=== PATIENT | female | born 1940 | race Caucasian/White ===

== ENCOUNTER 2016-11-04 15:25 | Emergency (ER) | payer OTHER ==
[~2016-11-04] VITALS: Ht 152.4 cm; Wt 72.0 kg
[2016-11-04 15:25] VITALS: BP 142/67; PULSE 71; RESP 16; TEMP 98.2; O2SAT 100
[2016-11-04 15:46] LABS: AUTOMATED NEUTROPHIL # 4.6 TH/MM3 (1.8-7.7); BASOPHIL # 0.1 TH/MM3 (0-0.2); BASOPHIL % 0.8 % (0.0-2.0); EOSINOPHIL # 0.2 TH/MM3 (0-0.4); EOSINOPHIL % 2.2 % (0.0-4.0); HEMO FLAGS DIFF FINAL; LYMPH % 20.5 % (9.0-44.0); LYMPHOCYTE # 1.4 TH/MM3 (1.0-4.8); MEAN CELL VOLUME 90.3 FL (80.0-100.0); MEAN CORPUSCULAR HGB CONC 34.3 % (32.0-36.0); MONO % 6.8 % (0.0-8.0); NEUT % 69.7 % (16.0-70.0); PLATELET COUNT 168 TH/MM3 (150-450); RED BLOOD COUNT 4.54 MIL/MM3 (4.00-5.30); RED CELL DISTRIBUTION WIDTH 12.4 % (11.6-17.2); WHITE BLOOD COUNT 6.8 TH/MM3 (4.0-11.0)
[2016-11-04 15:54] LABS: CHLORIDE 111 MEQ/L (98-107); POTASSIUM 4.1 MEQ/L (3.5-5.1); SODIUM (NA) 143 MEQ/L (136-145)
[2016-11-04 15:56] LABS: ANION GAP 6 MEQ/L (5-15); BICARBONATE 26.3 MEQ/L (21.0-32.0)
[2016-11-04 15:57] LABS: BLOOD UREA NITROGEN 27 MG/DL (7-18)
[2016-11-04 16:00] VITALS: O2SAT 98
[2016-11-04 16:00] LABS: APTT (PATIENT) 26.8 SEC (24.3-30.1); GLOMERULAR FILTRATION RATE 71 ML/MIN (>89); PROTHROMBIN TIME - PATIENT 11.1 SEC (9.8-11.6)
[2016-11-04 16:03] LABS: CREATINE KINASE 108 U/L (26-192)
--- NOTE | 2016-11-04 16:12 | PD ---
HPI Chief Complaint: Chest Pain Time Seen by Provider: 16:01 Travel History International Travel<30 days: No Contact w/Intl Traveler<30days: No Traveled to known affect area: No History of Present Illness HPI Patient is a 76 her old female with history of TIA, hyperlipidemia, hypothyroidism, presents to emergency room with complaints of chest pain. Patient reports that since this morning, she has felt a pressure and wrapping sensation around her lower chest wall. Patient reports that she initially thought that her symptoms were due to indigestion as symptoms began after breakfast (bagel and orange juice), reports that she took some Rolaids with no relief of symptoms. Patient reports that her symptoms progressed throughout the day she became concerned. Patient denies history of coronary disease, denies history of OR. Patient denies any shortness of breath or diaphoresis with her symptoms. She does not see a in service educator. PFSH Past Medical History Arthritis: Yes High Cholesterol: Yes Thyroid Disease: Yes ?: Not Past Surgical History Section: Yes Tonsillectomy: Yes Social History Alcohol Use: No Tobacco Use: No Substance Use: No Allergies-Medications (Allergen,Severity, Reaction): Coded Allergies: No Known Allergies (Unverified , 11/04/16) Reported Meds & Prescriptions Reported Meds & Active Scripts Active Protonix (Pantoprazole Sodium) 40 Mg Tab 40 Mg PO DAILY Reported Calcium 600 with Vitamin D (Calcium Carbonate-Cholecalciferol) 600-400 mg-Unit Tab 1 Tab PO DAILY Glucosamine-Chondroitin 500-400 Mg Tab 1 Tab PO DAILY Aspirin 81 Mg Chew 81 Mg CHEW DAILY [place]-3 Fish Oil/Vitamin (Fish Oil-Cholecalciferol) 1,000-1,000 Mg Cap 1 Cap PO DAILY Levothyroxine (Levothyroxine Sodium) 88 Mcg Tab 88 Mcg PO DAILY Naproxen Sodium DS (Naproxen Sodium) 550 Mg Tab 550 Mg PO BID Simvastatin 10 Mg Tab 10 Mg PO DAILY Review of Systems General / Constitutional: No: Fever Eyes: No: Visual changes HENT: No: Headaches Cardiovascular: Positive: Chest Pain or Discomfort Respiratory: No: Shortness of Breath Gastrointestinal: No: Abdominal Pain Genitourinary: No: Dysuria Musculoskeletal: No: Pain Skin: No Rash Neurologic: No: Weakness Psychiatric: No: Depression Endocrine: No: Polydipsia Hematologic/Lymphatic: No: Easy Bruising Physical Exam Narrative GENERAL: No acute distress, nontoxic SKIN: Focused skin assessment warm/dry. HEAD: Atraumatic. Normocephalic. EYES: Pupils equal and round. No scleral icterus. No injection or drainage. ENT: No nasal bleeding or discharge. Mucous membranes pink and moist. NECK: Trachea midline. No JVD. CARDIOVASCULAR: Regular rate and rhythm. No murmur appreciated. RESPIRATORY: No accessory muscle use. Clear to auscultation. Breath sounds equal bilaterally. GASTROINTESTINAL: Abdomen soft, non-tender, nondistended. Hepatic and splenic margins not palpable. MUSCULOSKELETAL: No obvious deformities. No clubbing. No cyanosis. No edema. NEUROLOGICAL: Awake and alert. No obvious cranial nerve deficits. Motor grossly within normal limits. Normal speech. PSYCHIATRIC: Appropriate mood and affect; insight and judgment normal. Data Data Last Documented VS Vital Signs Date Time Temp Pulse Resp B/P Pulse Ox O2 Delivery O2 Flow Rate FiO2 11/04/16 19:04 98.2 59 18 153/73 100 11/04/16 18:34 Room Air Orders Electrocardiogram (11/04/16 15:30) Complete Blood Count With Diff (11/04/16 15:30) Basic Metabolic Panel (Bmp) (11/04/16 15:30) Ckmb (Isoenzyme) Profile (11/04/16 15:30) Troponin I (11/04/16 15:30) Chest, Single Ap (11/04/16 15:30) Iv Access Insert/Monitor (11/04/16 15:30) Ecg Monitoring (11/04/16 15:30) Oxygen Administration (11/04/16 15:30) Oximetry (11/04/16 15:30) Act Partial Throm Time (Ptt) (11/04/16 15:36) Prothrombin Time / Inr (Pt) (11/04/16 15:36) CKMB (11/04/16 15:30) CKMB% (11/04/16 15:30) Aspirin Chew (Aspirin Chew) (11/04/16 16:15) Nitroglycerin Sl (Nitrostat Sl) (11/04/16 16:15) Famotidine Inj (Pepcid Inj) (11/04/16 16:45) Al-Mag Hy-Si 40-40-4 Mg/Ml Liq (Mag-Al P (11/04/16 16:45) Lidocaine 2% Viscous (Xylocaine 2% Visco (11/04/16 16:45) Troponin I (11/04/16 18:30) Electrocardiogram (11/04/16 18:21) Labs Laboratory Tests Test 11/04/16 11/04/16 15:30 18:10 White Blood Count 6.8 TH/MM3 Red Blood Count 4.54 MIL/MM3 Hemoglobin 14.1 GM/DL Hematocrit 41.0 % Mean Corpuscular Volume 90.3 FL Mean Corpuscular Hemoglobin 31.0 PG Mean Corpuscular Hemoglobin 34.3 % Concent Red Cell Distribution Width 12.4 % Platelet Count 168 TH/MM3 Mean Platelet Volume 8.4 FL Neutrophils (%) (Auto) 69.7 % Lymphocytes (%) (Auto) 20.5 % Monocytes (%) (Auto) 6.8 % Eosinophils (%) (Auto) 2.2 % Basophils (%) (Auto) 0.8 % Neutrophils # (Auto) 4.6 TH/MM3 Lymphocytes # (Auto) 1.4 TH/MM3 Monocytes # (Auto) 0.5 TH/MM3 Eosinophils # (Auto) 0.2 TH/MM3 Basophils # (Auto) 0.1 TH/MM3 CBC Comment DIFF FINAL Differential Comment Prothrombin Time 11.1 SEC Prothromb Time International 1.0 RATIO Ratio Activated Partial 26.8 SEC Thromboplast Time Sodium Level 143 MEQ/L Potassium Level 4.1 MEQ/L Chloride Level 111 MEQ/L Carbon Dioxide Level 26.3 MEQ/L Anion Gap 6 MEQ/L Blood Urea Nitrogen 27 MG/DL Creatinine 0.79 MG/DL Estimat Glomerular Filtration 71 ML/MIN Rate Random Glucose 110 MG/DL Calcium Level 8.9 MG/DL Total Creatine Kinase 108 U/L Creatine Kinase MB 2.5 NG/ML Troponin I LESS THAN 0.02 LESS THAN 0.02 NG/ML NG/ML MDM Medical Decision Making Medical Screen Exam Complete: Yes Emergency Medical Condition: Yes Interpretation(s) EKG at 1526: NSR [id number], qt/qtc: 369/390, no acute st or t wave changes EKG at 1832: Sinus bee at 58bpm, qt/qtc: 392/389, no acute st or t wave changes Vital Signs Date Time Temp Pulse Resp B/P Pulse Ox O2 Delivery O2 Flow Rate FiO2 11/04/16 15:25 98.2 71 16 142/67 100 11/04/16 15:25 71 16 100 Differential Diagnosis Differential includes ACS, arrhythmia, electrolyte abnormality, GERD, Gastritis Narrative Course 76-year-old female who presents to emergency room with complaints of chest pain since this morning. Patient reports the chest pain has been ongoing since after she finished breakfast (bagel with orange juice), reports that she has a pressure/pain sensation under her breast b/l. Reports that she initially thought that symptoms were due to indigestion, she took a few Rolaids with no relief of symptoms. She became concerned as her symptoms became progressively worse over the past few hours. Denies history of CAD, OR or Htn. She does not have a in service educator. Patient was placed on a court monitor upon arrival to the emergency room. Labs including cardiac enzymes, chest x-ray ordered. Patient was administered aspirin, sublingual nitroglycerin will be administered to see if this helps with her chest pain. Patient received 3 SL nitro - reports no relief of her symptoms, reports that she started burping again and pain now is more in her epigastrium. Will administer pepcid and GI cocktail. Patient with relief of symptoms with GI cocktail and Pepcid. Given her symptoms , patient's symptoms most likely due to acid reflux. I did offer patient admission to the hospital for chest pain observation, patient refuses admission to the hospital. Reports that she came to [place] as her granddaughter's graduation is tomorrow, reports that she wants to go to the graduation and not stay overnight. Patient reports that she will see her primary care doctor when she returns to [place] on Monday, she will return to the emergency room immediately if she develops return of symptoms. Plan to obtain a second set of cardiac enzymes as well as repeat EKG. Patient understands that she may return to the emergency room at any time for reevaluation of her symptoms.\ repeat trop less than 0.02 patient was offered observation to the hospital. she defers this at this time and request to be discharged home. Patient understands that she can return to the emergency with any time for further reevaluation of her symptoms. Signs and symptoms of when to return to the emergency reviewed patient in detail. Diagnosis Primary Impression: Chest pain Qualified Code: R07.9 - Chest pain, unspecified type Additional Impression: GERD (gastroesophageal reflux disease) Qualified Code: K21.9 - Gastroesophageal reflux disease without esophagitis Patient Instructions: General Instructions Additional Instructions: You may return to the emergency room at any time for reevaluation of your symptoms Please return to the ER immediately if you have return of chest pain Please take all medications as prescribed Please follow up with your primary care doctor as soon as possible Please follow up with in service educator as soon as possible Med/Other Pt SpecificInfo: Prescription(s) given Scripts Pantoprazole (Protonix)40 Mg Tab40 Mg PO DAILY #30 TAB Ref 0 Prov:Tamiko Lopez DO 11/04/16 Disposition: 01 DISCHARGE HOME Condition: Stable Tamiko Lopez DO Nov 04, 2016 16:12
[2016-11-04] MEDS ORDERED: NAPR550T3 PO (16:14)
[2016-11-04] MEDS ORDERED: ASPI81CH CHEW (16:14)
[2016-11-04] MEDS ORDERED: SIMV10TA PO (16:14)
[2016-11-04] MEDS ORDERED: LEVO88TA2 PO (16:14)
[2016-11-04] MEDS ORDERED: GLUC500T4 PO (16:14)
[2016-11-04] MEDS ORDERED: OMEGCAP PO (16:14)
[2016-11-04] MEDS ORDERED: CALC1TAB87 PO (16:14)
[2016-11-04 16:15] LABS: CKMB 2.5 NG/ML (0.5-3.6)
[2016-11-04] MEDS ORDERED: ASPIRIN 81 MG CHEW TAB PO ONE (16:15)
--- NOTE | 2016-11-04 16:15 | RADRPT ---
EXAM DATE/TIME: 11/04/2016 15:42 [facility] COMPARISON: No previous studies available for comparison. INDICATIONS : Chest pain. MEDICAL HISTORY : None. SURGICAL HISTORY : None. ENCOUNTER: Initial ACUITY: 1 day PAIN SCORE: 7/10 LOCATION: Bilateral chest FINDINGS: Portable AP view of the chest demonstrates a normal-sized cardiac silhouette with calcification of th e aorta. No effusion, consolidation, or pneumothorax is visualized. The bones and soft tissues demons trate no acute abnormality. CONCLUSION: No acute cardiopulmonary abnormality is identified. Humberto Bray MD on November 04, 2016 at 16:12 Board Certified Radiologist. This report was verified electronically.
[2016-11-04] MEDS: NITROGLYCERIN 0.4 MG SL 25 TABS/BTL SL SCH ×3 (16:21→16:34)
[2016-11-04 16:22] VITALS: BP 152/80; PULSE 67; RESP 16; O2SAT 99
[2016-11-04] MEDS ORDERED: FAMOTIDINE 20 MG/2 ML VIAL IV PUSH ONE (16:45)
[2016-11-04] MEDS ORDERED: LIDOCAINE VISCOUS 2% SOLN 15 ML UDC PO ONE (16:45)
[2016-11-04] MEDS ORDERED: ALUMINUM/MAGNESIUM/SIMETH 30 ML CUP PO ONE (16:45)
[2016-11-04 17:28] VITALS: BP 111/57; PULSE 64; RESP 16; O2SAT 98
[2016-11-04 18:34] VITALS: BP 132/62; PULSE 67; RESP 16; O2SAT 100
[2016-11-04] MEDS ORDERED: PROT40TA PO (18:37)
[2016-11-04 19:04] VITALS: BP 153/73; TEMP 98.2
--- NOTE | 2016-11-05 13:40 | EKG ---
Date Performed: 11/04/2016 Time Performed: 18:32:01 PTAGE: 76 years EKG: SINUS BRADYCARDIA BORDERLINE ECG PREVIOUS TRACING : 11/04/2016 15.26 Since previous tracing, no significant change noted DOCTOR: Jeremias Carrero Interpretating Date/Time 11/05/2016 13:38:27
--- NOTE | 2016-11-05 13:40 | EKG ---
Date Performed: 11/04/2016 Time Performed: 15:26:39 PTAGE: 76 years EKG: Sinus rhythm PATTERN CONSISTENT WITH PULMONARY DISEASE INFERIOR MYOCARDIAL INFARCTION ABNORMAL ECG NO PREVIOUS TRACING DOCTOR: Jeremias Carrero Interpretating Date/Time 11/05/2016 13:38:17
== END 2016-11-04 19:07 | disposition home or self-care (01) ==
LOC: PHED 15:25
DX: R07.9 Chest pain, unspecified (principal); K21.9 Gastro-esophageal reflux disease without esophagitis; R94.31 Abnormal electrocardiogram [ECG] [EKG]; E78.5 Hyperlipidemia, unspecified; E03.9 Hypothyroidism, unspecified; Z86.73 Personal history of transient ischemic attack (TIA), and cerebral infarction without residual deficits; Z87.39 Personal history of other diseases of the musculoskeletal system and connective tissue
CPT/HCPCS: 71010; 80048; 82550; 82552; 84484; 85025; 85610; 85730; 93005; 96374